=== PATIENT | female | born 1990 | race Caucasian/White ===

== ENCOUNTER 2016-11-20 12:47 | Emergency (ER) | payer SELFPAY ==
[2016-11-20 13:01] VITALS: BP 147/97
[2016-11-20] MEDS: NORMAL SALINE 1000 ML 1,000 ML IV PRN ×2 (15:16→15:38)
[2016-11-20 15:34] LABS: ANION GAP 17 (5-19); BLOOD UREA NITROGEN 19 mg/dL (7-20); CALCIUM 10.3 mg/dL (8.4-10.2); CARBON DIOXIDE 25 mmol/L (22-30); CHLORIDE 96 mmol/L (98-107); CREATINE KINASE 109 U/L (30-135); CREATININE RESULT 0.83 mg/dL (0.52-1.25); GLUCOSE 79 mg/dL (75-110); POTASSIUM 4.5 mmol/L (3.6-5.0); SODIUM 137.5 mmol/L (137-145)
--- NOTE | 2016-11-20 16:10 | ER Document Report ---
ED General - General Chief Complaint: Dizziness Stated Complaint: DIZZINESS Time Seen by Provider: 11/20/16 14:21 TRAVEL OUTSIDE OF THE [place] IN LAST 30 DAYS: No - HPI Patient complains to provider of: Dizziness dehydration Notes: Patient coming in for evaluation of dizziness. Patient states she has been on methimazole visit the patient is sunburned. Patient also states that she is having right-sided neck pain. Patient states she is to be an IV drug user does have a needle that broke off in her neck above the clavicle and now is having pain going up to the mid neck. Patient denies any fever chills nausea vomiting diarrhea. - Related Data Allergies/Adverse Reactions: No Known Allergies Allergy (Verified 11/20/16 12:59) Past Medical History - Social History Smoking Status: Current Some Day Smoker Chew tobacco use (# tins/day): No Frequency of alcohol use: None Drug Abuse: None Family History: Reviewed & Not Pertinent Patient has suicidal ideation: No Patient has homicidal ideation: No Renal/ Medical History: Denies: Hx Peritoneal Dialysis Past Surgical History: Reports: Hx Appendectomy - Immunizations Hx Diphtheria, Pertussis, Tetanus Vaccination: Yes Review of Systems - Review of Systems Constitutional: Other - Dehydration dizziness EENT: No symptoms reported Cardiovascular: No symptoms reported Respiratory: No symptoms reported Gastrointestinal: No symptoms reported Genitourinary: No symptoms reported Female Genitourinary: No symptoms reported Musculoskeletal: No symptoms reported Skin: No symptoms reported Hematologic/Lymphatic: No symptoms reported Neurological/Psychological: No symptoms reported Physical Exam - Vital signs Vitals: Temp Pulse Resp BP Pulse Ox 97.8 F 87 16 147/97 H 100 11/20/16 12:59 11/20/16 12:59 11/20/16 12:59 11/20/16 12:59 11/20/16 12:59 Interpretation: Normal - General General appearance: Appears well, Alert - HEENT Head: Normocephalic, Atraumatic Eyes: Normal Pupils: PERRL - Respiratory Respiratory status: No respiratory distress Chest status: Nontender Breath sounds: Normal Chest palpation: Normal - Cardiovascular Rhythm: Regular Heart sounds: Normal auscultation Murmur: No - Abdominal Inspection: Normal Distension: No distension Bowel sounds: Normal Tenderness: Nontender Organomegaly: No organomegaly - Back Back: Normal, Nontender - Extremities General upper extremity: Normal inspection, Nontender, Normal color, Normal ROM , Normal temperature General lower extremity: Normal inspection, Nontender, Normal color, Normal ROM , Normal temperature, Normal weight bearing. No: Chetan's sign - Neurological Neuro grossly intact: Yes Cognition: Normal Orientation: AAOx4 Magalie Coma Scale Eye Opening: Spontaneous [place]ie Coma Scale Verbal: Oriented [place] Coma Scale Motor: Obeys Commands [place] Coma Scale Total: 15 Speech: Normal Motor strength normal: LUE, RUE, LLE, RLE Sensory: Normal - Psychological Associated symptoms: Normal affect, Normal mood - Skin Skin Temperature: Warm Skin Moisture: Dry Skin Color: Other - Sunburns skin diffuse Course - Re-evaluation Re-evalutation: 11/20/16 20:15 Bedside ultrasound showed a needle retained in the supraclavicular region however at the site of the patient's neck pain there is no abnormality. No signs of abscess formation no signs of infection. Patient had basic lab work checked and IV fluids were given there is no signs of dehydration.. Patient feeling much better after IV fluids and will be discharged home - Vital Signs Vital signs: Temp Pulse Resp BP Pulse Ox 97.8 F 87 16 147/97 H 100 11/20/16 12:59 11/20/16 12:59 11/20/16 12:59 11/20/16 12:59 11/20/16 12:59 - Laboratory Result Diagrams: 11/20/16 14:35 Laboratory results interpreted by me: 11/20/16 14:35 Chloride 96 L Calcium 10.3 H Discharge - Discharge Clinical Impression: Sunburn, Dehydration Condition: Good Disposition: HOME, SELF-CARE Instructions: Dehydration ([facility]) Additional Instructions: I work today shows signs of dehydration. Please make sure that you are drinking plenty of fluids stay hydrated. Please apply sunscreen to avoid overexposure to sun. Return to the ER symptoms worsen.
== END 2016-11-20 16:20 | disposition home or self-care (01) ==
LOC: EDBD → ER 12:47
DX: L55.9 Sunburn, unspecified (principal); E86.0 Dehydration; R42 Dizziness and giddiness; F17.200 Nicotine dependence, unspecified, uncomplicated
CPT/HCPCS: 99284; 36415; 82550; 84702; 80048; J7030